=== PATIENT | female | born 1970 | race African-American/Black ===

== ENCOUNTER 2024-02-17 19:07 | Outpatient (CLI) | payer MEDICAID, SELFPAY | END 2024-02-17 19:08 | disposition home or self-care (01) | LOC: AMB 02-22 09:51 | PROVIDERS: PCP Family Medicine; Visit Provider Emergency Medicine | DX: F10.129 Alcohol abuse with intoxication, unspecified (principal) | CPT/HCPCS: A0998 ==

== ENCOUNTER 2024-12-21 12:05 | Outpatient (CLI) | payer MEDICARE, SELFPAY | END 2024-12-21 12:06 | disposition home or self-care (01) | PROVIDERS: PCP Student in an Organized Health Care Education/Training Program; Visit Provider Family Medicine | DX: F29 Unspecified psychosis not due to a substance or known physiological condition (principal) | CPT/HCPCS: A0425; A0427 ==